=== PATIENT | female | born 1980 | race Caucasian/White ===

== ENCOUNTER 2017-12-15 23:47 | Inpatient (IN) | payer MEDICAID, OTHER ==
[~2017-12-15] VITALS: Ht 157.5 cm; Wt 98.6 kg
[~2017-12-15 23:47] MED LIST: FLUO-191 PO
[2017-12-16 00:51] LABS: BASOPHILS % (AUTO) 0.6 % (0.0-2.0); EOSINOPHILS % (AUTO) 0.8 % (1.0-6.0); HEMATOCRIT 35.9 % (36-46); HEMOGLOBIN 12.3 g/dL (12.0-16.0); LYMPHOCYTES # (AUTO) 2.2 K/uL (1.0-4.8); LYMPHOCYTES % (AUTO) 22.6 % (22.0-44.0); MEAN CORPUSCULAR HEMOGLOBIN 30.7 pg (26.0-34.0); MEAN CORPUSCULAR HGB CONC 34.3 G/dL (31.0-37.0); MEAN CORPUSCULAR VOLUME 90 fL (80-100); MONOCYTES # (AUTO) 0.6 K/uL (0.1-1.0); PLATELET COUNT (AUTO) 371 K/uL (150-450); RED CELL DISTRIBUTION WIDTH 14.6 % (11.5-14.5)
[2017-12-16 01:00] LABS: AMPHET/METH SCREEN,URINE POSITIVE (NEGATIVE); BARBITURATE SCREEN, URINE NEGATIVE (NEGATIVE); BENZODIAZEPINES SCREEN,URINE NEGATIVE (NEGATIVE); CANNABINOID SCREEN,URINE POSITIVE (NEGATIVE); COCAINE SCREEN,URINE NEGATIVE (NEGATIVE); METHADONE SCREEN, URINE NEGATIVE (NEGATIVE); OPIATE SCREEN,URINE NEGATIVE (NEGATIVE)
[2017-12-16 01:03] LABS: PHENCYCLIDINE SCREEN,URINE NEGATIVE (NEGATIVE)
[2017-12-16 01:06] LABS: ANION GAP 6 mmol/L (8-16); CALCIUM, TOTAL 8.7 mg/dL (8.8-10.5); CARBON DIOXIDE 31 mmol/L (22-29); CHLORIDE 102 mmol/L (98-107); CREATININE 0.96 mg/dL (0.60-1.30); GLOMERULAR FILTR. RATE CALC > 60 mL/min (>60); GLUCOSE,RANDOM 107 mg/dL (70-110); POTASSIUM 3.7 mmol/L (3.5-5.1); SODIUM SERUM 139 mmol/L (136-145); UREA NITROGEN, BLOOD 18 mg/dL (7-18)
[2017-12-16 01:11] LABS: ALANINE AMINOTRANSFERASE 35 U/L (12-78); ALBUMIN 3.5 g/dL (3.4-5.0); ALKALINE PHOSPHATASE 121 U/L (46-116); ASPARTATE AMINOTRANSFERASE 16 U/L (15-37); BILIRUBIN,TOTAL 1.5 mg/dL (0.1-1.0); TOTAL PROTEIN, SERUM 7.9 g/dL (6.4-8.2)
[2017-12-16] MEDS ORDERED: LORazepam 2 MG TABLET PO ONE (01:30)
[2017-12-16] MEDS ORDERED: ZOLPIDEM TARTRATE 10 MG TABLET PO PRN (01:45)
[2017-12-16] MEDS ORDERED: HALOPERIDOL 5 MG TABLET PO PRN (01:45)
[2017-12-16 02:45] LABS: FREE T4 (FREE THYROXINE) 1.02 ng/dL (0.76-1.46); THYROID STIMULATING HORMONE 0.47 uIU/mL (0.36-3.74)
[2017-12-16 03:55] VITALS: BP 100/60
[2017-12-16 08:42] VITALS: BP 103/76
[2017-12-16] MEDS: FLUoxetine HCL 20 MG CAPSULE PO SCH (10:44)
[2017-12-16 16:29] VITALS: BP 117/70
[2017-12-16] MEDS: LORazepam 2 MG TABLET PO PRN (17:24)
[2017-12-17 00:46] VITALS: BP 105/64
[2017-12-17] MEDS: FLUoxetine HCL 20 MG CAPSULE PO SCH (08:32)
[2017-12-17 08:48] VITALS: BP 116/78
[2017-12-17 16:10] VITALS: BP 110/72
[2017-12-17] MEDS: LORazepam 2 MG TABLET PO PRN (17:53)
[2017-12-18 02:01] VITALS: BP 102/61
[2017-12-18] MEDS ORDERED: FLUO-191 PO (07:51)
[2017-12-18] MEDS: FLUoxetine HCL 20 MG CAPSULE PO SCH (08:23)
[2017-12-18 08:44] VITALS: BP 112/68
== END 2017-12-18 11:30 | disposition home or self-care (01) | DRG 754 ==
LOC: EMS 23:48 → B2S 12-16 01:53
PROVIDERS: ADMIT Psychiatry & Neurology Child & Adolescent Psychiatry; ATTEND Psychiatry & Neurology Child & Adolescent Psychiatry
DX: F32.9 Major depressive disorder, single episode, unspecified (principal); R17 Unspecified jaundice; R45.851 Suicidal ideations; F20.9 Schizophrenia, unspecified; F15.10 Other stimulant abuse, uncomplicated; F17.200 Nicotine dependence, unspecified, uncomplicated; F19.10 Other psychoactive substance abuse, uncomplicated; F12.90 Cannabis use, unspecified, uncomplicated; G40.909 Epilepsy, unspecified, not intractable, without status epilepticus; M54.9 Dorsalgia, unspecified; G89.29 Other chronic pain; Z91.410 Personal history of adult physical and sexual abuse; Z91.5 Personal history of self-harm; Z90.49 Acquired absence of other specified parts of digestive tract; Z71.6 Tobacco abuse counseling
CPT/HCPCS: 84439; 84443; 99285; G0480